=== PATIENT | female | born 1995 | race Two or more races ===

== ENCOUNTER 2024-01-13 11:09 | Emergency (ER) | payer BC ==
[~2024-01-13] VITALS: Ht 160 cm; Wt 80.8 kg
[2024-01-13] MEDS ORDERED: PRENATABS FA T1 EACH PO (11:18)
[2024-01-13 11:45] LABS: BASOPHILS 0.3 % (0-2); EOSINOPHILS 1.9 % (0-6); HEMATOCRIT 41.7 % (35.0-50.0); HEMOGLOBIN 14.3 g/dL (12.0-18.0); LYMPHOCYTES 24.5 % (24-44); MCH 31.5 (27-36); MCHC 34.2 g/dl (30-36); MCV 92.1 fl (81-99); MONOCYTES 6.2 % (0-12); NEUTROPHILS 67.1 % (39-80); PLATELET COUNT 284 K/uL (140-440); RBC 4.52 M/ul (4.3-5.7)
[2024-01-13] MEDS ORDERED: ondansetron HCL 4 MG/2 ML VIAL IV ONE (11:45)
[2024-01-13] MEDS ORDERED: SODIUM CHLORIDE 0.9% 1,000 ML IV PRN (11:45)
[2024-01-13 11:56] LABS: ALBUMIN 2.9 g/dL (3.4-5.0); ALBUMIN/GLOBULIN RATIO 0.6 (1.1-2.4); ANION GAP 15.7 (7-21); BILIRUBIN, TOTAL 0.9 ng/dL (0.2-1.0); BUN/CREATININE RATIO 11.68 (6.0-28.6); CREATININE, SERUM 0.77 mg/dL (0.55-1.02); POTASSIUM 3.7 mmol/L (3.5-5.1); PROTEIN, TOTAL 7.7 g/dL (6.4-8.2)
[2024-01-13 12:21] LABS: BILIRUBIN, URINE POSITIVE (negative); BLOOD/HGB, URINE TRACE-I (Negative); KETONE, URINE SMALL (Negative); LEUK ESTERASE, URINE TRACE (negative); NITRITE, URINE NEGATIVE (negative); PH, URINE 6.5 (5-7)
[2024-01-13 12:27] LABS: CRYSTALS, URINE NONE SEEN (0-1+); EPITHELIAL CELLS, URINE SQUAMOUS 3+ /lpf (0-1+); RED BLOOD CELLS, URINE 0-1 /hpf (0-5)
[2024-01-13 12:28] LABS: BACTERIA, URINE RARE /hpf (negative); CASTS, URINE NONE SEEN \\lpf; COLLECTION TYPE, URINE CLEAN CATCH; REFLEX CULTURE, URINE No (No)
[2024-01-13] MEDS ORDERED: ONDANSETRON ODT4 MG PO (12:47)
[2024-01-13 12:57] VITALS: BP 111/69
== END 2024-01-13 12:58 | disposition home or self-care (01) ==
LOC: ED 11:09
PROVIDERS: Emergency Medicine
DX: O21.0 Mild hyperemesis gravidarum (principal); Z3A.09 9 weeks gestation of pregnancy; Z79.899 Other long term (current) drug therapy
CPT/HCPCS: 36415; 80053; 81001; 85025; 96374; 99284-25; J2405; J7030

== ENCOUNTER 2024-08-15 15:16 | Inpatient (IN) | payer OTHER ==
[~2024-08-15] VITALS: Ht 160 cm; Wt 98.0 kg
[~2024-08-15 15:16] MED LIST: ONDANSETRON ODT4 MG PO; PRENATABS FA T1 EACH PO
[2024-08-15 15:54] LABS: AMNISURE ROM TEST POSITIVE
[2024-08-15 16:27] LABS: MCH 30.1 PG (25.6-32.2); MCHC 34.0 g/dL (32.2-35.5); MCV 88.6 fL (79.4-94.8); RBC 4.65 M/uL (3.93-5.22)
[2024-08-15] MEDS ORDERED: CALCIUM CARBONATE 500 MG CHEW PO PRN (16:30)
[2024-08-15] MEDS ORDERED: LACTATED RINGER'S 1,000 ML IV PRN (16:30)
[2024-08-15] MEDS ORDERED: OXYTOCIN/0.9 % SODIUM CHLORIDE 30 UNITS/500 ML BAG IV SCH ×2 (16:30→17:15)
[2024-08-15] MEDS ORDERED: OXYTOCIN/0.9 % SODIUM CHLORIDE 500 ML IV SCH (16:30)
[2024-08-15] MEDS ORDERED: MAGNESIUM HYDROXIDE/AL HYDROX 30 ML CUP PO PRN (16:30)
[2024-08-15] MEDS ORDERED: TERBUTALINE SULFATE 1 MG/ML AMP ONE ×2 (16:33→16:35)
[2024-08-15] MEDS ORDERED: SOD+POT BICARB/CITRIC ACID 2 EA TABLET.EFF ONE (16:33)
[2024-08-15] MEDS ORDERED: LIDOCAINE HCL 1% 30 ML SDV ONE (16:34)
[2024-08-15 16:55] LABS: ABO A; ANTIBODY SCREEN NEGATIVE; RH POSITIVE
[2024-08-15 17:39] LABS: AMPHETAMINES, URINE NEGATIVE (NEGATIVE); BARBITURATES, URINE NEGATIVE (NEGATIVE); BENZODIAZEPINE, URINE NEGATIVE (NEGATIVE); CANNABINOID, URINE NEGATIVE (NEGATIVE); COCAINE, URINE NEGATIVE (NEGATIVE); ECSTASY, URINE NEGATIVE (NEGATIVE); FENTANYL, URINE NEGATIVE (NEGATIVE); METHADONE, URINE NEGATIVE (NEGATIVE); OPIATES, URINE NEGATIVE (NEGATIVE); OXYCODONE, URINE NEGATIVE (NEGATIVE); PHENCYCLIDINE, URINE NEGATIVE (NEGATIVE)
--- NOTE | 2024-08-15 19:29 | PR ---
[facility] [address] [facility] [place], [place] [address] Signed Progress Notes IP Datetime Report Generated by CPN: 08/15/2024 19:29 PROGRESS NOTES: [id number] Impression: Normal Progression of Labor; Reassuring Heart Rate Procedures: Sterile Vag Exam Plan: Continue Present Management VITAL SIGNS: [id number] Vital Signs: Reviewed; Within Normal Limits EXAM: [id number] Dilatation: 2.0 Effacement: 60 Station: -3 Contractions: Irregular MEMBRANES: [id number] Amniotic Fluid Color: Clear Comments: Pt seen and examined. Doing well. Pit at 4. No painful contractions but becoming more regular. Cx unchanged on exam. Continue increasing pitocin per protocol. Discussed anticiapted course of labor FETUS A: [id number] FHR Baseline: 150 Variability: Minimal - >Undetectable to <=5bpm Accelerations: None Decelerations: None FHR Category: Category II Presentation: Vertex Comments on Fetus A: No evidence of metabolic acidosis FETUS B: [id number] Signing Physician: Dennis uLx DO Copies: ~ *Electronically Signed* 08/15/241928 DENNIS LUX (JANNET) DO PATIENT NAME: PAUL KUMAR PROGRESS NOTE DATE OF : [birth year] PHYSICIAN: DENNIS LUX) DO RPT #: [id number] REPORT IS CONFIDENTIAL AND NOT TO BE RELEASED WITHOUT AUTHORIZATION
--- NOTE | 2024-08-15 23:23 | PR ---
[facility] [address] [place], [place] [address] Signed Progress Notes IP Datetime Report Generated by CPN: 08/15/2024 23:23 PROGRESS NOTES: [id number] Impression: Normal Progression of Labor; Reassuring Heart Rate Procedures: Intrauterine Pressure Catheter; Sterile Vag Exam; Amnio Infusion Plan: Continue Present Management VITAL SIGNS: [id number] Vital Signs: Reviewed; Within Normal Limits EXAM: [id number] Dilatation: 3.5 Effacement: 70 Station: -2 Contractions: Irregular MEMBRANES: [id number] Amniotic Fluid Color: Clear Comments: Pt seen and examined. Doing well. Developed intermittent variable decelerations. Pitocin was stopped per protocol. On exam, no cord prolapse and vertex well applied. IUPC inserted w/out difficulty and will start amnioinfusion after discussing with patient and partner. FETUS A: [id number] FHR Baseline: 150 Variability: Moderate 6-25bpm Accelerations: None Decelerations: Variable FHR Category: Category II Presentation: Vertex Comments on Fetus A: No evidence of metabolic acidosis FETUS B: [id number] Signing Physician: Dennis Lux DO Copies: ~ *Electronically Signed* 08/15/24 6946 DENNIS LUX (JANNET) DO PATIENT NAME: PAUL KUMAR PROGRESS NOTE DATE OF : [birth year] PHYSICIAN: DENNIS LUX (JD) DO RPT #: [id number] REPORT IS CONFIDENTIAL AND NOT TO BE RELEASED WITHOUT AUTHORIZATION
[2024-08-15] MEDS ORDERED: SODIUM CHLORIDE 0.9% 1,000 ML XX SCH (23:30)
[2024-08-16] MEDS ORDERED: BUPIVACAINE HCL 0.25% 10 ML SDV INJ ONE (02:33)
[2024-08-16] MEDS ORDERED: fentaNYL citrate 100 MCG/2 ML VIAL ONE (02:33)
[2024-08-16] MEDS ORDERED: ROPIVACAINE 0.2% 200 ML BAG ONE (02:36)
[2024-08-16] MEDS ORDERED: ePHEDrine KIT FOR FBC IV ONE (03:27)
[2024-08-16] MEDS ORDERED: LACTATED RINGER'S 2,000 ML IV ONE (03:45)
[2024-08-16] MEDS ORDERED: ePHEDrine sulfate 5 MG/ML SYRINGE IV PRN (03:45)
[2024-08-16] MEDS ORDERED: LACTATED RINGER'S 500 ML IV PRN (03:45)
[2024-08-16] MEDS ORDERED: WITCH HAZEL/GLYCERIN 1 EA PAD TOP PRN (06:45)
[2024-08-16] MEDS ORDERED: BENZOCAINE 60 ML AEROSOL TOP PRN (06:45)
[2024-08-16] MEDS ORDERED: CALCIUM CARBONATE 500 MG CHEW PO PRN (06:45)
[2024-08-16] MEDS ORDERED: ACETAMINOPHEN 325 MG TAB PO PRN (06:45)
[2024-08-16] MEDS ORDERED: HYDROCORTISONE ACETATE 25 MG SUPP PR PRN (06:45)
[2024-08-16] MEDS ORDERED: HYDROCODONE/ACETA 5/325 TAB PO PRN (06:45)
[2024-08-16] MEDS ORDERED: IBUPROFEN 600 MG TAB PO PRN (06:45)
[2024-08-16] MEDS ORDERED: MAGNESIUM HYDROXIDE 30 ML UDC PO PRN (06:45)
[2024-08-16] MEDS ORDERED: OXYTOCIN/0.9 % SODIUM CHLORIDE 500 ML IV SCH (06:45)
[2024-08-16] MEDS ORDERED: OXYCODONE/APAP 5/325 TAB PO PRN (06:45)
[2024-08-16] MEDS ORDERED: MAGNESIUM HYDROXIDE/AL HYDROX 30 ML CUP PO PRN (06:45)
[2024-08-16] MEDS ORDERED: SENNOSIDES/DOCUSATE 1 EA TAB PO SCH (09:00)
[2024-08-17 05:04] LABS: MCH 30.2 PG (25.6-32.2); MCHC 33.2 g/dL (32.2-35.5); MCV 90.9 fL (79.4-94.8); RBC 3.97 M/uL (3.93-5.22)
--- NOTE | 2024-08-17 09:52 | PR ---
[facility] [address] [facility] [place], [place] [address] Signed PP Progress Notes Datetime Report Generated by CPN: 08/17/2024 09:52 SUBJECTIVE: [id number] Pain: Within Normal Limits Nausea/Vomiting: Denies Vital Signs: [id number] Vital Signs: Reviewed; Within Normal Limits Cardiovascular: Normal Respiratory: Normal Abdomen/Uterus: Normal Lochia: Normal Vulva/Perineum: Not Done Breasts: Not Done CVA Tenderness: Normal Extremities: Normal Incision: Not Applicable Progress: Normal Exam Comments: Fundus firm U-2 nontender IMPRESSION/PLAN/PROCEDURES: [id number] Impression: Normal Progression Plan: Discharge Progress Notes: Pt seen and examined. Doing well. Ambulating, voiding, and tolerating full diet. Pain and lochia minimal. . No fevers/chills or other concerns. Desires d/c home. Unsure of plans for pp contraception. Reviewed d/c instructions and medications (ibuprofen). F/U 2 wks. Signing Physician: Dennis Lux DO Copies: ~ *Electronically Signed* 08/17/24 0952 DENNIS LUX (JANNET) DO PATIENT NAME: HANDCOX REBOLLEDO,PAUL PROGRESS NOTE DATE OF : [birth year] PHYSICIAN: DENNIS LUX) DO RPT #: [id number] REPORT IS CONFIDENTIAL AND NOT TO BE RELEASED WITHOUT AUTHORIZATION
== END 2024-08-17 13:46 | disposition home or self-care (01) | DRG 807 ==
LOC: FBCO 15:16 → FBC 16:17
PROVIDERS: ADMIT Obstetrics & Gynecology; ATTEND Obstetrics & Gynecology
PROC: 4A1HXCZ Monitoring of Products of Conception, Cardiac Rate, External Approach (ICD-10-PCS; 2024-08-15)
PROC: 10E0XZZ Delivery of Products of Conception, External Approach (ICD-10-PCS; principal; 2024-08-16)
DX: O42.02 Full-term premature rupture of membranes, onset of labor within 24 hours of rupture (principal); Z37.0 Single live birth; Z3A.40 40 weeks gestation of pregnancy; O48.0 Post-term pregnancy; O69.81X0 Labor and delivery complicated by cord around neck, without compression, not applicable or unspecified; O99.344 Other mental disorders complicating childbirth; F41.9 Anxiety disorder, unspecified
CPT/HCPCS: 01960; 36415; 80307; 84112; 85027; 86850; 86900; 86901; J3010; J7121